=== PATIENT | female | born 1990 | race Caucasian/White ===

== ENCOUNTER 2016-08-06 04:44 | Inpatient (IN) | payer OTHER ==
[2016-08-06 05:42] LABS: BILIRUBIN NEGATIVE (NEGATIVE); BLOOD 2+ Ery/uL (NEGATIVE); CLARITY CLEAR (CLEAR); COLOR YELLOW (YELLOW); GLUCOSE (U) NORMAL (NORMAL); KETONE (U) NEGATIVE (NEGATIVE); LEUKOCYTES NEGATIVE Leu/uL (NEGATIVE); NITRITE NEGATIVE (NEGATIVE); PROTEIN NEGATIVE (NEGATIVE); UROBILINOGEN 0.2 mg/dL (0.2-1.0)
[2016-08-06 05:48] LABS: BACTERIA 1+; URINARY RBC RARE; URINARY WBC RARE
[2016-08-06 05:58] LABS: BENZODIAZEPINES NEGATIVE (NEGATIVE)
[2016-08-06 05:59] LABS: AMPHETAMINES NEGATIVE (NEGATIVE); BARBITURATES NEGATIVE (NEGATIVE); COCAINE NEGATIVE (NEGATIVE); MARIJUANA (THC) NEGATIVE (NEGATIVE); METHADONE NEGATIVE (NEGATIVE); TRICYCLIC ANTIDEPRESSANT NEGATIVE (NEGATIVE)
[2016-08-06 06:12] LABS: HGB 14.1 g/dl (12.5-16.0); MCH 31.7 pg (25.0-31.0); MCHC 34.4 g/dL (32.0-36.0); MCV 92.1 fL (78.0-100.0); MPV 9.5 fL (6.0-9.5); RBC 4.45 M/uL (4.20-5.40); RDW 13.6 % (11.5-14.0); WBC 9.6 K/uL (4.0-10.5)
[2016-08-07 05:49] LABS: HCT 35.5 % (37.0-47.0); HGB 11.9 g/dl (12.5-16.0); MCH 31.8 pg (25.0-31.0); MCHC 33.5 g/dL (32.0-36.0); MCV 94.9 fL (78.0-100.0); MPV 9.2 fL (6.0-9.5); RBC 3.74 M/uL (4.20-5.40); RDW 13.7 % (11.5-14.0); WBC 11.9 K/uL (4.0-10.5)
== END 2016-08-08 17:00 | disposition home or self-care (01) | DRG 774 ==
LOC: FOD 04:44 → FOB 04:44 → FOD 05:27 → FOB 05:28 → FOD 05:28 → FOB 08-08 17:00
PROVIDERS: ADMIT Obstetrics & Gynecology
PROC: 10E0XZZ Delivery of Products of Conception, External Approach (ICD-10-PCS; principal; 2016-08-06)
PROC: 4A1HX4Z Monitoring of Products of Conception, Cardiac Electrical Activity, External Approach (ICD-10-PCS; 2016-08-06)
DX: O43.123 Velamentous insertion of umbilical cord, third trimester (principal); O44.43 Low lying placenta NOS or without hemorrhage, third trimester; F17.213 Nicotine dependence, cigarettes, with withdrawal; Z3A.38 38 weeks gestation of pregnancy; Z37.0 Single live birth; F32.9 Major depressive disorder, single episode, unspecified; Z22.330 Carrier of Group B streptococcus; Z87.59 Personal history of other complications of pregnancy, childbirth and the puerperium; O99.334 Smoking (tobacco) complicating childbirth
CPT/HCPCS: 36415; 80305; 81001; 88307; J2405; J2540; J2795